=== PATIENT | female | born 1960 | race Hispanic/Latino ===

== ENCOUNTER 2019-12-16 23:57 | Inpatient (IN) | payer BC, OTHER, SELFPAY ==
[~2019-12-16] VITALS: Ht 157.5 cm; Wt 94.8 kg
[2019-12-17 01:22] LABS: BASOPHILS % (AUTO) 0.1 % (0.0-5.0); HEMATOCRIT 40.1 % (36-48); MEAN CORPUSCULAR HEMOGLOBIN 30.3 pg (27.0-33.0); MEAN CORPUSCULAR HGB CONC 34.4 g/dL (32.0-36.0); MEAN CORPUSCULAR VOLUME 88.1 fL (79-99); MONOCYTES % (AUTO) 2.6 % (3.0-13.0); NEUTROPHILS % (AUTO) 82.7 % (40.0-77.0); PLATELET COUNT (AUTO) 302 K/uL (130-400); RED BLOOD CELL COUNT(AUTO) 4.55 MIL/uL (4.00-5.50); WHITE BLOOD COUNT (AUTO) 7.8 K/uL (4.8-10.8)
[2019-12-17] MEDS ORDERED: CEFTRIAXONE SODIUM 2 GM VIAL ONE (01:35)
[2019-12-17] MEDS ORDERED: DEXAMETHASONE SOD PHOSPHATE 10MG/ML 1ML VIAL ONE (01:35)
[2019-12-17] MEDS ORDERED: ONDANSETRON HCL 4 MG/2 ML VIAL ONE (01:35)
[2019-12-17 01:38] LABS: CARBON DIOXIDE 26 mmol/L (21-32); CHLORIDE 93 mmol/L (101-111); CREATININE 0.9 mg/dL (0.5-1.5); GLOMERULAR FILTR. RATE CALC 68 mL/min (>60); GLUCOSE,RANDOM 117 mg/dL (70-105); POTASSIUM 3.8 mmol/L (3.5-5.1); SODIUM SERUM 130 mmol/L (136-145); UREA NITROGEN, BLOOD 12 mg/dL (7-18)
[2019-12-17 01:48] LABS: ABG BASE EXCESS -1.3 mmol/L (-2.0-3.0); ABG HCO3 20.6 mmol/L (21.0-28.0); ABG OXYGEN SATURATION 87.2 % (95.0-99.0); ABG PCO2 28 mmHg (32-45)
[2019-12-17 01:52] LABS: ALANINE AMINOTRANSFERASE 72 U/L (12-78); ALBUMIN 2.9 g/dL (3.5-5.0); ASPARTATE AMINOTRANSFERASE 98 U/L (10-37); BILIRUBIN,TOTAL 0.7 mg/dL (0.2-1.0); CREATINE KINASE, TOTAL 129 U/L (21-232); MYOGLOBIN 76 ng/mL (10-92); TOTAL PROTEIN, SERUM 8.1 g/dL (6.0-8.3); TROPONIN I < 0.04 ng/mL (0.00-0.06)
[2019-12-17 02:04] LABS: INR 0.96 (0.85-1.15); PARTIAL THROMBOPLASTIN TIME 31.7 SEC (26.3-35.5); PROTHROMBIN TIME 10.4 SEC (9.6-11.6)
[2019-12-17 02:50] LABS: APPEARANCE,URINE Clear (CLEAR); BILIRUBIN,URINE Small (NEGATIVE); COLOR,URINE Dark Yellow (YELLOW); GLUCOSE, URINE (UA) Negative (NEGATIVE); KETONES,URINE 15 mg/dL (NEGATIVE); LEUKOCYTE ESTERASE ,URINE Trace (NEGATIVE); NITRATE,URINE Negative (NEGATIVE); OCCULT BLOOD,URINE Large (NEGATIVE); PROTEIN,URINE 300 mg/dL (NEGATIVE)
[2019-12-17 03:13] LABS: BACTERIA,URINE Few /HPF (None Seen)
[2019-12-17 03:14] LABS: FINE GRANULAR CASTS,URINE 0-2 /LPF (None Seen)
[2019-12-17] MEDS ORDERED: ENOXAPARIN SODIUM 100 MG/1 ML SQ ONE ×2 (03:21→23:18)
[2019-12-17] MEDS ORDERED: ACETAMINOPHEN EXTRA STRENGTH 500 MG TABLET ONE (03:33)
[2019-12-17] MEDS ORDERED: ONDANSETRON HCL 4 MG/2 ML VIAL IV PRN (04:00)
[2019-12-17] MEDS ORDERED: HYDRALAZINE HCL 20 MG/ML VIAL IV PRN (04:00)
[2019-12-17] MEDS ORDERED: ACETAMINOPHEN 325 MG TAB PO PRN (04:00)
[2019-12-17] MEDS ORDERED: LACTULOSE 20 GM/30 ML UDCUP PO PRN (04:00)
[2019-12-17] MEDS ORDERED: IOHEXOL 350 MG/ML 100ML INFUS..BTL IV ONE (04:05)
[2019-12-17] MEDS: AZITHROMYCIN 500MG+NS 250ML 250 ML IV SCH (05:30)
[2019-12-17] MEDS: ALBUTEROL SULFATE/IPRATROPIUM 103/18 MCG/PUFF 14.7 GM INHR IH SCH ×3 (06:00→18:00)
[2019-12-17] MEDS: METHYLPREDNISOLONE SOD SUCC 40MG/ML 1ML IVP SCH ×3 (06:00→22:00)
[2019-12-17] MEDS ORDERED: AZITHROMYCIN 500MG+NS 250ML 250 ML IV ONE (06:49)
[2019-12-17] MEDS ORDERED: METHYLPREDNISOLONE SOD SUCC 40MG/ML 1ML ONE ×3 (06:49→23:19)
[2019-12-17] MEDS: INSULIN HUMULIN R 100 UNIT/ML 3ML SQ SCH ×4 (07:30→21:00)
[2019-12-17] MEDS ORDERED: ENOXAPARIN SODIUM 40 MG/0.4 ML SYRINGE SQ SCH (09:00)
[2019-12-17] MEDS: FAMOTIDINE 20MG TAB 20 MG TAB PO SCH ×2 (09:00→21:00)
[2019-12-17] MEDS ORDERED: ENOXAPARIN SODIUM 1 MG/KG SQ SCH (09:00)
[2019-12-17] MEDS ORDERED: MONT10TA26 PO (10:24)
[2019-12-17] MEDS ORDERED: ALBUHFA IH (10:24)
[2019-12-17] MEDS ORDERED: PRED5TAB PO (10:24)
[2019-12-17] MEDS ORDERED: LOSA25TA41 PO (10:24)
[2019-12-17] MEDS: ENOXAPARIN SODIUM 100 MG/1 ML SQ SCH ×2 (12:00→21:00)
[2019-12-17] MEDS ORDERED: FAMOTIDINE 20MG TAB 20 MG TAB ONE ×2 (13:46→23:19)
[2019-12-17] MEDS ORDERED: ALBUTEROL INHALER 90MCG/INH IH ONE (14:26)
--- NOTE | 2019-12-17 15:51 | NUR ---
DCP: HOME Sw unable to see pt who is ER covid unit. Sw spoke to pt's Johnathon Ryder [phone]. states that pt, he and their 35yro daughter and 8yro grandson have all tested positive and have all have symptoms, but pt who has asthma has had it the worst. Prior to covid, pt was independent, not DME or HH services. PCP is Paula Feliciano and she uses [facility] for meds. Plan is home at or
[2019-12-18] MEDS: CEFTRIAXONE SODIUM 1 GM IV SCH (01:59)
[2019-12-18 02:01] VITALS: BP 110/76
[2019-12-18 04:00] VITALS: BP 112/70
[2019-12-18] MEDS: ALBUTEROL SULFATE/IPRATROPIUM 103/18 MCG/PUFF 14.7 GM INHR IH SCH ×4 (04:21→18:36)
[2019-12-18] MEDS: METHYLPREDNISOLONE SOD SUCC 40MG/ML 1ML IVP SCH ×3 (06:08→22:29)
[2019-12-18] MEDS: AZITHROMYCIN 500MG+NS 250ML 250 ML IV SCH (06:08)
[2019-12-18] MEDS: INSULIN HUMULIN R 100 UNIT/ML 3ML SQ SCH ×4 (06:11→21:57)
[2019-12-18 06:44] LABS: BASOPHILS % (AUTO) 0.1 % (0.0-5.0); HEMATOCRIT 38.2 % (36-48); LYMPHOCYTES % (AUTO) 8.7 % (21.0-51.0); MEAN CORPUSCULAR HEMOGLOBIN 30.5 pg (27.0-33.0); MEAN CORPUSCULAR HGB CONC 34.3 g/dL (32.0-36.0); MEAN CORPUSCULAR VOLUME 88.8 fL (79-99); MONOCYTES % (AUTO) 2.4 % (3.0-13.0); PLATELET COUNT (AUTO) 355 K/uL (130-400); RED CELL DISTRIBUTION WIDTH 11.9 % (11.0-15.5); WHITE BLOOD COUNT (AUTO) 11.6 K/uL (4.8-10.8)
[2019-12-18 07:17] LABS: CRP QUANTITATIVE 121.8 mg/L (0.00-9.0); POTASSIUM 3.5 mmol/L (3.5-5.1)
[2019-12-18 08:00] VITALS: BP 104/65
[2019-12-18] MEDS ORDERED: REMDESIVIR (INVESTIGATIONAL) 100 MG in SODIUM CHLORIDE 0.9% 250 ML IV SCH (08:00)
[2019-12-18] MEDS: FAMOTIDINE 20MG TAB 20 MG TAB PO SCH ×2 (08:19→20:42)
[2019-12-18] MEDS: ENOXAPARIN SODIUM 100 MG/1 ML SQ SCH ×2 (08:20→21:52)
[2019-12-18 12:00] VITALS: BP 115/67
[2019-12-18 16:00] VITALS: BP 106/59
[2019-12-18] MEDS ORDERED: REMDESIVIR (INVESTIGATIONAL) 200 MG/250 ML NS IV SCH (18:45)
[2019-12-18 20:00] VITALS: BP 110/71
--- NOTE | 2019-12-18 20:00 | NUR ---
ASSESSMENT PT RESTING QUIETLY IN BED, AAOX4, PLEASANT COOPERATIVE, APPROPRIATE. REPOSITIONS SELF WITHOUT DIFFICULTY. HI FLOW O2 INTACT. , DENIES ANY DIFFICULTY, S.O.B., CHEST PAIN OR DISCOMFORT. VOIDS PER BEDPAN. ASSESSMENT COMPLETED, SEE FLOW SHEET.
[2019-12-18] MEDS: FAMOTIDINE/PF 20 MG/2 ML VIAL IV SCH (21:00)
[2019-12-18] MEDS ORDERED: FAMOTIDINE/PF 20 MG/2 ML VIAL IV ONE (21:17)
[2019-12-18] MEDS ORDERED: ALBUTEROL INHALER 90MCG/INH IH PRN (21:45)
[2019-12-19] VITALS: BP 117/73
[2019-12-19] MEDS: CEFTRIAXONE SODIUM 1 GM IV SCH (01:53)
[2019-12-19] MEDS ORDERED: SODIUM CHLORIDE 0.9% 250 ML IV ONE (03:32)
[2019-12-19 04:02] VITALS: BP 111/76
[2019-12-19 05:21] LABS: BASOPHILS % (AUTO) 0.1 % (0.0-5.0); HEMATOCRIT 35.8 % (36-48); LYMPHOCYTES % (AUTO) 6.2 % (21.0-51.0); MEAN CORPUSCULAR HEMOGLOBIN 29.7 pg (27.0-33.0); MEAN CORPUSCULAR HGB CONC 33.2 g/dL (32.0-36.0); MEAN CORPUSCULAR VOLUME 89.3 fL (79-99); NEUTROPHILS % (AUTO) 90.2 % (40.0-77.0); PLATELET COUNT (AUTO) 413 K/uL (130-400); RED BLOOD CELL COUNT(AUTO) 4.01 MIL/uL (4.00-5.50); RED CELL DISTRIBUTION WIDTH 11.9 % (11.0-15.5); WHITE BLOOD COUNT (AUTO) 14.3 K/uL (4.8-10.8)
[2019-12-19 05:44] LABS: CREATININE 0.9 mg/dL (0.5-1.5); CRP QUANTITATIVE 53.4 mg/L (0.00-9.0); POTASSIUM 3.7 mmol/L (3.5-5.1)
[2019-12-19] MEDS: INSULIN HUMULIN R 100 UNIT/ML 3ML SQ SCH ×4 (06:03→21:00)
[2019-12-19] MEDS: AZITHROMYCIN 500MG+NS 250ML 250 ML IV SCH (06:04)
[2019-12-19] MEDS: METHYLPREDNISOLONE SOD SUCC 40MG/ML 1ML IVP SCH ×3 (06:04→21:32)
[2019-12-19] MEDS: ALBUTEROL SULFATE/IPRATROPIUM 103/18 MCG/PUFF 14.7 GM INHR IH SCH ×4 (06:07→18:00)
--- NOTE | 2019-12-19 06:42 | NUR ---
PLASMA CONVALESCENT PLASMA GIVEN X2 UNITS, SEE FLOW SHEETS
[2019-12-19] MEDS ORDERED: DOCUSATE SODIUM 100 MG CAP PO ONE (08:00)
[2019-12-19] MEDS: FAMOTIDINE/PF 20 MG/2 ML VIAL IV SCH ×2 (08:24→20:15)
[2019-12-19] MEDS: ENOXAPARIN SODIUM 100 MG/1 ML SQ SCH ×2 (08:25→20:15)
[2019-12-19 08:32] VITALS: BP 121/74
[2019-12-19 11:30] VITALS: BP 125/81
[2019-12-19 15:00] VITALS: BP 136/80
[2019-12-19] MEDS: REMDESIVIR (INVESTIGATIONAL) 100 MG in SODIUM CHLORIDE 0.9% 250 ML IV SCH (16:49)
[2019-12-19 20:00] VITALS: BP 118/73
[2019-12-20] VITALS (7 sets, daily range): BP systolic 119–149; BP diastolic 73–87
[2019-12-20] MEDS: CEFTRIAXONE SODIUM 1 GM IV SCH (00:16)
[2019-12-20] MEDS: ALBUTEROL SULFATE/IPRATROPIUM 103/18 MCG/PUFF 14.7 GM INHR IH SCH ×5 (00:17→23:57)
[2019-12-20] MEDS: AZITHROMYCIN 500MG+NS 250ML 250 ML IV SCH (05:28)
[2019-12-20] MEDS: METHYLPREDNISOLONE SOD SUCC 40MG/ML 1ML IVP SCH ×3 (05:28→21:16)
[2019-12-20 05:47] LABS: BASOPHILS % (AUTO) 0.2 % (0.0-5.0); HEMATOCRIT 36.3 % (36-48); LYMPHOCYTES % (AUTO) 6.9 % (21.0-51.0); MEAN CORPUSCULAR HEMOGLOBIN 30.3 pg (27.0-33.0); MEAN CORPUSCULAR HGB CONC 33.3 g/dL (32.0-36.0); MONOCYTES % (AUTO) 1.6 % (3.0-13.0); PLATELET COUNT (AUTO) 449 K/uL (130-400); RED BLOOD CELL COUNT(AUTO) 3.99 MIL/uL (4.00-5.50); RED CELL DISTRIBUTION WIDTH 11.9 % (11.0-15.5); WHITE BLOOD COUNT (AUTO) 13.1 K/uL (4.8-10.8)
[2019-12-20] MEDS: INSULIN HUMULIN R 100 UNIT/ML 3ML SQ SCH ×4 (05:51→21:00)
[2019-12-20 06:52] LABS: CREATININE 0.8 mg/dL (0.5-1.5); CRP QUANTITATIVE 33.1 mg/L (0.00-9.0); POTASSIUM 3.8 mmol/L (3.5-5.1)
[2019-12-20] MEDS: ENOXAPARIN SODIUM 100 MG/1 ML SQ SCH ×2 (07:58→21:16)
[2019-12-20] MEDS: FAMOTIDINE/PF 20 MG/2 ML VIAL IV SCH ×2 (07:58→21:16)
[2019-12-20] MEDS: REMDESIVIR (INVESTIGATIONAL) 100 MG in SODIUM CHLORIDE 0.9% 250 ML IV SCH (16:44)
[2019-12-21] MEDS: CEFTRIAXONE SODIUM 1 GM IV SCH (00:29)
[2019-12-21 04:00] VITALS: BP 150/82
[2019-12-21] MEDS: METHYLPREDNISOLONE SOD SUCC 40MG/ML 1ML IVP SCH ×3 (05:09→20:27)
[2019-12-21] MEDS: ALBUTEROL SULFATE/IPRATROPIUM 103/18 MCG/PUFF 14.7 GM INHR IH SCH ×3 (05:09→18:00)
[2019-12-21] MEDS: AZITHROMYCIN 500MG+NS 250ML 250 ML IV SCH (05:09)
[2019-12-21] MEDS: INSULIN HUMULIN R 100 UNIT/ML 3ML SQ SCH ×4 (05:24→20:43)
[2019-12-21 07:29] LABS: CRP QUANTITATIVE 35.2 mg/L (0.00-9.0)
[2019-12-21 08:00] VITALS: BP 136/82
[2019-12-21] MEDS: ENOXAPARIN SODIUM 100 MG/1 ML SQ SCH (09:43)
[2019-12-21] MEDS: FAMOTIDINE/PF 20 MG/2 ML VIAL IV SCH ×2 (09:43→20:27)
[2019-12-21 11:38] VITALS: BP 132/82
[2019-12-21] MEDS: REMDESIVIR (INVESTIGATIONAL) 100 MG in SODIUM CHLORIDE 0.9% 250 ML IV SCH (16:00)
[2019-12-21] MEDS ORDERED: SODIUM CHLORIDE 0.9% 250 ML IV ONE (16:07)
[2019-12-21 16:24] VITALS: BP 147/84
[2019-12-21 20:00] VITALS: BP 152/77
[2019-12-21] MEDS: ENOXAPARIN SODIUM 40 MG/0.4 ML SYRINGE SQ SCH (20:28)
[2019-12-22] VITALS (7 sets, daily range): BP systolic 125–156; BP diastolic 69–92
[2019-12-22] MEDS: CEFTRIAXONE SODIUM 1 GM IV SCH ×2 (00:18→21:06)
[2019-12-22] MEDS: ALBUTEROL SULFATE/IPRATROPIUM 103/18 MCG/PUFF 14.7 GM INHR IH SCH ×4 (00:19→17:00)
[2019-12-22] MEDS: METHYLPREDNISOLONE SOD SUCC 40MG/ML 1ML IVP SCH ×3 (05:43→21:06)
[2019-12-22] MEDS: AZITHROMYCIN 500MG+NS 250ML 250 ML IV SCH (05:43)
[2019-12-22 05:58] LABS: BASOPHILS % (AUTO) 0.1 % (0.0-5.0); EOSINOPHILS % (AUTO) 0.2 % (0.0-8.0); HEMATOCRIT 38.2 % (36-48); LYMPHOCYTES % (AUTO) 7.5 % (21.0-51.0); MEAN CORPUSCULAR HEMOGLOBIN 29.7 pg (27.0-33.0); MEAN CORPUSCULAR HGB CONC 33.2 g/dL (32.0-36.0); MEAN CORPUSCULAR VOLUME 89.3 fL (79-99); MONOCYTES % (AUTO) 0.7 % (3.0-13.0); NEUTROPHILS % (AUTO) 88.8 % (40.0-77.0); PLATELET COUNT (AUTO) 504 K/uL (130-400); RED BLOOD CELL COUNT(AUTO) 4.28 MIL/uL (4.00-5.50); RED CELL DISTRIBUTION WIDTH 11.8 % (11.0-15.5); WHITE BLOOD COUNT (AUTO) 13.5 K/uL (4.8-10.8)
[2019-12-22] MEDS: INSULIN HUMULIN R 100 UNIT/ML 3ML SQ SCH ×3 (06:15→16:45)
[2019-12-22 07:18] LABS: ALBUMIN 2.6 g/dL (3.5-5.0); BILIRUBIN,TOTAL 0.5 mg/dL (0.2-1.0); CREATININE 0.9 mg/dL (0.5-1.5); CRP QUANTITATIVE 37.6 mg/L (0.00-9.0); TOTAL PROTEIN, SERUM 6.8 g/dL (6.0-8.3)
[2019-12-22 07:26] LABS: POTASSIUM 3.9 mmol/L (3.5-5.1)
[2019-12-22] MEDS: FAMOTIDINE/PF 20 MG/2 ML VIAL IV SCH ×2 (08:10→21:06)
[2019-12-22] MEDS: ENOXAPARIN SODIUM 40 MG/0.4 ML SYRINGE SQ SCH ×2 (08:11→21:07)
[2019-12-22] MEDS: REMDESIVIR (INVESTIGATIONAL) 100 MG in SODIUM CHLORIDE 0.9% 250 ML IV SCH (16:29)
[2019-12-22] MEDS ORDERED: PHARMACY COMMUNICATION MISC SCH (20:30)
[2019-12-23 03:30] VITALS: BP 141/81
[2019-12-23 05:11] LABS: BASOPHILS % (AUTO) 0.2 % (0.0-5.0); EOSINOPHILS % (AUTO) 0.2 % (0.0-8.0); HEMATOCRIT 39.2 % (36-48); LYMPHOCYTES % (AUTO) 4.6 % (21.0-51.0); MEAN CORPUSCULAR HEMOGLOBIN 30.1 pg (27.0-33.0); MEAN CORPUSCULAR HGB CONC 33.2 g/dL (32.0-36.0); MEAN CORPUSCULAR VOLUME 90.7 fL (79-99); MONOCYTES % (AUTO) 0.7 % (3.0-13.0); NEUTROPHILS % (AUTO) 91.9 % (40.0-77.0); PLATELET COUNT (AUTO) 555 K/uL (130-400); RED BLOOD CELL COUNT(AUTO) 4.32 MIL/uL (4.00-5.50); RED CELL DISTRIBUTION WIDTH 11.8 % (11.0-15.5); WHITE BLOOD COUNT (AUTO) 13.8 K/uL (4.8-10.8)
[2019-12-23 05:16] LABS: ALBUMIN 2.6 g/dL (3.5-5.0); BILIRUBIN,TOTAL 0.5 mg/dL (0.2-1.0); CREATININE 0.7 mg/dL (0.5-1.5); CRP QUANTITATIVE 36.4 mg/L (0.00-9.0); POTASSIUM 4.6 mmol/L (3.5-5.1)
[2019-12-23] MEDS: INSULIN HUMULIN R 100 UNIT/ML 3ML SQ SCH ×5 (05:24→21:21)
[2019-12-23] MEDS: ALBUTEROL SULFATE/IPRATROPIUM 103/18 MCG/PUFF 14.7 GM INHR IH SCH ×4 (06:00→17:15)
[2019-12-23] MEDS: AZITHROMYCIN 500MG+NS 250ML 250 ML IV SCH (06:07)
[2019-12-23] MEDS: METHYLPREDNISOLONE SOD SUCC 40MG/ML 1ML IVP SCH ×3 (06:07→21:20)
--- NOTE | 2019-12-23 07:40 | NUR ---
DR TREJO MADE AWARE ABOUT PATIENT SATTING 70-80 % ON 100% NRM PLUS 4 LITERS VIA NASAL CANNULA, NEW ORDERS GIVEN. Addendum: 12/23/19 at 1541 by BREE DE RN RN CORRECTION, CHARTED ON WRONG PATIENT
[2019-12-23 08:00] VITALS: BP 125/82
--- NOTE | 2019-12-23 08:15 | NUR ---
DR TREJO NOTIFIED VIA PHONE REGARDING ABG RESULTS: PH 7.449, PCO2 38.2, PO2 38.1, BE 2.0, NEW INSTRUCTIONS GIVEN TO PLACE PATIENT ON PRONE POSITION, ORDERS CARRIED OUT, ORDERED PER Addendum: 12/23/19 at 1541 by BREE DE RN RN CORRECTION, CHARTED ON WRONG PATIENT
[2019-12-23] MEDS: FAMOTIDINE/PF 20 MG/2 ML VIAL IV SCH ×2 (08:45→21:18)
[2019-12-23] MEDS: ENOXAPARIN SODIUM 40 MG/0.4 ML SYRINGE SQ SCH ×2 (08:45→21:19)
--- NOTE | 2019-12-23 09:05 | NUR ---
REMAINS WITH O2 SATS BETWEEN 75-82%, PLACED ON HIGH FLOW 50 LITERS, 100 %FIO2 PLUS 100 % NRM, INSTRUCTED PER DR TREJO Addendum: 12/23/19 at 1543 by BREE DE RN RN CORRECTION, CHARTED ON WRONG PATIENT
--- NOTE | 2019-12-23 10:20 | NUR ---
DR TREJO PRESENT OUTSIDE PATIENT'S ROOM, NEW ORDERS GIVEN
[2019-12-23 12:00] VITALS: BP 124/77
[2019-12-23 15:00] VITALS: BP 112/77
[2019-12-23 19:32] VITALS: BP 131/92
[2019-12-23] MEDS: CEFTRIAXONE SODIUM 1 GM IV SCH (21:19)
[2019-12-24 00:08] VITALS: BP 144/92
[2019-12-24] MEDS: ACETAMINOPHEN 325 MG TAB PO PRN (01:04)
[2019-12-24 04:00] VITALS: BP 146/78
[2019-12-24] MEDS: METHYLPREDNISOLONE SOD SUCC 40MG/ML 1ML IVP SCH ×3 (05:04→21:37)
[2019-12-24] MEDS: AZITHROMYCIN 500MG+NS 250ML 250 ML IV SCH (05:04)
[2019-12-24] MEDS: ALBUTEROL SULFATE/IPRATROPIUM 103/18 MCG/PUFF 14.7 GM INHR IH SCH ×4 (06:00→17:06)
[2019-12-24] MEDS: INSULIN HUMULIN R 100 UNIT/ML 3ML SQ SCH ×4 (06:43→21:00)
[2019-12-24 06:58] LABS: BASOPHILS % (AUTO) 0.1 % (0.0-5.0); EOSINOPHILS % (AUTO) 0.3 % (0.0-8.0); HEMATOCRIT 38.8 % (36-48); LYMPHOCYTES % (AUTO) 4.3 % (21.0-51.0); MEAN CORPUSCULAR HEMOGLOBIN 29.8 pg (27.0-33.0); MEAN CORPUSCULAR VOLUME 90.2 fL (79-99); MONOCYTES % (AUTO) 0.6 % (3.0-13.0); PLATELET COUNT (AUTO) 577 K/uL (130-400); RED CELL DISTRIBUTION WIDTH 11.9 % (11.0-15.5); WHITE BLOOD COUNT (AUTO) 11.9 K/uL (4.8-10.8)
[2019-12-24 07:33] LABS: ALBUMIN 2.5 g/dL (3.5-5.0); BILIRUBIN,TOTAL 0.5 mg/dL (0.2-1.0); CREATININE 0.7 mg/dL (0.5-1.5); CRP QUANTITATIVE 26.1 mg/L (0.00-9.0); POTASSIUM 4.3 mmol/L (3.5-5.1); TOTAL PROTEIN, SERUM 6.7 g/dL (6.0-8.3)
[2019-12-24 08:00] VITALS: BP 116/93
[2019-12-24] MEDS: FAMOTIDINE/PF 20 MG/2 ML VIAL IV SCH ×2 (08:05→21:37)
[2019-12-24] MEDS: ENOXAPARIN SODIUM 40 MG/0.4 ML SYRINGE SQ SCH ×2 (08:05→21:36)
[2019-12-24 12:00] VITALS: BP 136/91
[2019-12-24] MEDS: ACETYLCYSTEINE 600 MG CAPSULE PO SCH ×2 (12:17→21:37)
[2019-12-24 16:00] VITALS: BP 117/83
[2019-12-24 19:57] VITALS: BP 109/80
[2019-12-24] MEDS ORDERED: SODIUM CHLORIDE 0.9% 250 ML IV ONE (20:16)
[2019-12-25] VITALS (7 sets, daily range): BP systolic 104–150; BP diastolic 66–93
[2019-12-25] MEDS: METHYLPREDNISOLONE SOD SUCC 40MG/ML 1ML IVP SCH ×3 (06:00→21:39)
[2019-12-25] MEDS: ALBUTEROL SULFATE/IPRATROPIUM 103/18 MCG/PUFF 14.7 GM INHR IH SCH ×4 (06:00→16:25)
[2019-12-25 06:12] LABS: ALBUMIN 2.5 g/dL (3.5-5.0); BILIRUBIN,TOTAL 0.6 mg/dL (0.2-1.0); CREATININE 0.8 mg/dL (0.5-1.5); CRP QUANTITATIVE 12.9 mg/L (0.00-9.0); POTASSIUM 4.4 mmol/L (3.5-5.1); TOTAL PROTEIN, SERUM 6.8 g/dL (6.0-8.3)
[2019-12-25 06:21] LABS: HEMATOCRIT 39.4 % (36-48); MEAN CORPUSCULAR HEMOGLOBIN 30.7 pg (27.0-33.0); MEAN CORPUSCULAR HGB CONC 34.3 g/dL (32.0-36.0); MEAN CORPUSCULAR VOLUME 89.5 fL (79-99); PLATELET COUNT (AUTO) 614 K/uL (130-400); RED CELL DISTRIBUTION WIDTH 11.9 % (11.0-15.5)
[2019-12-25] MEDS: INSULIN HUMULIN R 100 UNIT/ML 3ML SQ SCH ×4 (07:30→21:51)
[2019-12-25] MEDS: FAMOTIDINE/PF 20 MG/2 ML VIAL IV SCH ×2 (07:59→21:39)
[2019-12-25] MEDS: ENOXAPARIN SODIUM 40 MG/0.4 ML SYRINGE SQ SCH ×2 (07:59→21:40)
[2019-12-25] MEDS: ACETYLCYSTEINE 600 MG CAPSULE PO SCH ×2 (08:00→21:39)
[2019-12-25 08:47] LABS: LYMPHOCYTES % (MANUAL) 11 % (22-44); MONOCYTES % (MANUAL) 10 % (2-9); SEGMENTED NEUTROPHILS % 79 % (40-70)
[2019-12-25 08:48] LABS: MAN.DIFF COMMENT-IMPRESSION MANUAL DIFFERENTIAL; PLATELET MORPHOLOGY COMMENT INCREASED
--- NOTE | 2019-12-25 09:35 | NUR ---
REPORT GIVEN TO IRVING TOLBERT, TRANSFERRED TO ROOM 412 VIA WHEELCHAIR, ACCOMPANIED PER CHARGE NURSE KRISTOPHER HAQUE RN
--- NOTE | 2019-12-25 11:00 | NUR ---
Pt came to floor from ICU A&Ox4, pt was on high flow oxygen 30L 55% sat at 92-94%, pt BSC was placed near her, pt showed no signs and symptoms of distress, pt stated no pain, will continue to monitor
[2019-12-25] MEDS: ACETAMINOPHEN 325 MG TAB PO PRN (22:52)
--- NOTE | 2019-12-25 23:58 | NUR ---
Assessment Pt is in the room resting peacefully. As of right now she stated that she does not need anything. Her headache she complained of earlier in the shift is gone after tylenol was being administered. Pt is being monitored closely
[2019-12-26] MEDS: ACETAMINOPHEN 325 MG TAB PO PRN ×3 (03:17→03:40)
[2019-12-26 03:25] VITALS: BP 131/100
[2019-12-26] MEDS: INSULIN HUMULIN R 100 UNIT/ML 3ML SQ SCH ×4 (05:58→20:47)
[2019-12-26] MEDS: METHYLPREDNISOLONE SOD SUCC 40MG/ML 1ML IVP SCH ×3 (05:59→20:44)
[2019-12-26 06:12] LABS: HEMATOCRIT 41.4 % (36-48); MEAN CORPUSCULAR HEMOGLOBIN 30.7 pg (27.0-33.0); MEAN CORPUSCULAR HGB CONC 34.3 g/dL (32.0-36.0); MEAN CORPUSCULAR VOLUME 89.4 fL (79-99); PLATELET COUNT (AUTO) 581 K/uL (130-400); RED BLOOD CELL COUNT(AUTO) 4.63 MIL/uL (4.00-5.50); WHITE BLOOD COUNT (AUTO) 12.6 K/uL (4.8-10.8)
[2019-12-26] MEDS: ALBUTEROL SULFATE/IPRATROPIUM 103/18 MCG/PUFF 14.7 GM INHR IH SCH ×2 (06:13)
[2019-12-26 06:28] LABS: ALBUMIN 2.8 g/dL (3.5-5.0); BILIRUBIN,TOTAL 0.6 mg/dL (0.2-1.0); CREATININE 0.8 mg/dL (0.5-1.5); CRP QUANTITATIVE 6.2 mg/L (0.00-9.0); POTASSIUM 4.5 mmol/L (3.5-5.1)
[2019-12-26 07:37] VITALS: BP 131/97
[2019-12-26 08:37] LABS: LYMPHOCYTES % (MANUAL) 10 % (22-44); MAN.DIFF COMMENT-IMPRESSION MANUAL DIFFERENTIAL; MONOCYTES % (MANUAL) 2 % (2-9); PLATELET MORPHOLOGY COMMENT INCREASED; SEGMENTED NEUTROPHILS % 88 % (40-70)
[2019-12-26] MEDS: FAMOTIDINE/PF 20 MG/2 ML VIAL IV SCH ×2 (09:21→20:44)
[2019-12-26] MEDS: ACETYLCYSTEINE 600 MG CAPSULE PO SCH ×2 (09:21→20:44)
[2019-12-26] MEDS: ENOXAPARIN SODIUM 40 MG/0.4 ML SYRINGE SQ SCH ×2 (09:24→20:45)
--- NOTE | 2019-12-26 10:39 | NUR ---
RDSCREEN - LOS X 9 Pt with Positive COVID-19, Acute respiratory distress. Pt Hx of DM. Pt with decreased appetite at this time. Elevated LDH, Ferritin, BG. Morbid Obesity. s/p Plasma Tx, tolerating prone positioning as per EMR. Recommend 75gm CC diet modification Recommend Glucerna TID Recommend 500mg Vitamin C (BID), 220mg ZnSO4 (QD). RD to continue to monitor. Please notify RD as additional nutrition concerns arise. Thank you.
[2019-12-26 10:44] VITALS: BP 135/91
[2019-12-26 15:54] VITALS: BP 112/88
--- NOTE | 2019-12-26 18:25 | NUR ---
Pt is alert, showed no symptoms of distress, vitals WNL, pt is aware he is waiting on a place to accept him,
--- NOTE | 2019-12-26 18:47 | NUR ---
pt is alert, showed no signs and symptoms of distress, pt is on high flow oxygen sat at 97 tolerating well, will continue to monitor
[2019-12-26 19:00] VITALS: BP 117/81
[2019-12-26 23:42] VITALS: BP 125/89
[2019-12-27] MEDS: ALBUTEROL SULFATE/IPRATROPIUM 103/18 MCG/PUFF 14.7 GM INHR IH SCH ×4 (01:50→16:42)
--- NOTE | 2019-12-27 02:06 | NUR ---
Assessment Pt is in the bed sleeping. Oxygen is stable as well as other vitals. Pt is NOT showing S/S of distress. She is being closely monitored.
[2019-12-27 04:24] VITALS: BP 113/82
[2019-12-27] MEDS: METHYLPREDNISOLONE SOD SUCC 40MG/ML 1ML IVP SCH ×3 (06:22→21:02)
[2019-12-27] MEDS: INSULIN HUMULIN R 100 UNIT/ML 3ML SQ SCH ×4 (06:23→21:04)
[2019-12-27 07:39] LABS: BASOPHILS % (AUTO) 0.2 % (0.0-5.0); EOSINOPHILS % (AUTO) 0.2 % (0.0-8.0); HEMATOCRIT 39.4 % (36-48); LYMPHOCYTES % (AUTO) 8.3 % (21.0-51.0); MEAN CORPUSCULAR HEMOGLOBIN 29.6 pg (27.0-33.0); MEAN CORPUSCULAR HGB CONC 33.2 g/dL (32.0-36.0); MEAN CORPUSCULAR VOLUME 89.1 fL (79-99); MONOCYTES % (AUTO) 2.6 % (3.0-13.0); NEUTROPHILS % (AUTO) 87.6 % (40.0-77.0); PLATELET COUNT (AUTO) 506 K/uL (130-400); RED BLOOD CELL COUNT(AUTO) 4.42 MIL/uL (4.00-5.50); RED CELL DISTRIBUTION WIDTH 11.9 % (11.0-15.5); WHITE BLOOD COUNT (AUTO) 10.7 K/uL (4.8-10.8)
[2019-12-27 08:00] VITALS: BP 127/85
--- NOTE | 2019-12-27 08:00 | NUR ---
ENCOUNTERED PATIENT SITTING ON THE EDGE OF BED ON HIGH FLOW NC SET AT 20L, 55% FIO2. PATIENT VOICED THAT SHE FEELS MUCH BETTER TODAY HOWEVER STILL DEPENDS ON THE O2. FULL ASSESSMENT DONE. BEDSIDE COMMODE IN ROOM. CALL LIGHT WITHIN REACH. MAINTAINED ENHANCED ISOLATION.
[2019-12-27 08:12] LABS: ALBUMIN 2.6 g/dL (3.5-5.0); BILIRUBIN,TOTAL 0.8 mg/dL (0.2-1.0); CREATININE 0.7 mg/dL (0.5-1.5); CRP QUANTITATIVE 5.1 mg/L (0.00-9.0); POTASSIUM 4.1 mmol/L (3.5-5.1); TOTAL PROTEIN, SERUM 6.4 g/dL (6.0-8.3)
[2019-12-27] MEDS: ENOXAPARIN SODIUM 40 MG/0.4 ML SYRINGE SQ SCH ×2 (08:44→21:03)
[2019-12-27] MEDS: FAMOTIDINE/PF 20 MG/2 ML VIAL IV SCH ×2 (08:44→21:02)
[2019-12-27] MEDS: ACETYLCYSTEINE 600 MG CAPSULE PO SCH ×2 (08:44→21:03)
[2019-12-27 12:00] VITALS: BP 118/81
--- NOTE | 2019-12-27 14:40 | NUR ---
RT WEANED PATIENT OFF HIGH FLOW NASAL CANNULA AND KEPT HER ON 100% NONREBREATHER. O2 SAT: 95%.
[2019-12-27 16:00] VITALS: BP 121/77
--- NOTE | 2019-12-27 16:17 | NUR ---
O2 SAT: 95% ON 100% NRB.
[2019-12-27 20:28] VITALS: BP 110/81
[2019-12-28] VITALS (7 sets, daily range): BP systolic 112–131; BP diastolic 74–91
--- NOTE | 2019-12-28 02:58 | NUR ---
Assessment Pt is in the bed peacefully resting. She is not showing any S/S of distress. Vitals are stable & she is being closely monitored.
[2019-12-28] MEDS: ALBUTEROL SULFATE/IPRATROPIUM 103/18 MCG/PUFF 14.7 GM INHR IH SCH ×4 (05:49→19:34)
[2019-12-28] MEDS: INSULIN HUMULIN R 100 UNIT/ML 3ML SQ SCH ×4 (05:59→20:28)
[2019-12-28] MEDS: METHYLPREDNISOLONE SOD SUCC 40MG/ML 1ML IVP SCH ×3 (06:12→20:28)
[2019-12-28 06:56] LABS: MEAN CORPUSCULAR HEMOGLOBIN 30.6 pg (27.0-33.0); MEAN CORPUSCULAR HGB CONC 34.1 g/dL (32.0-36.0); MEAN CORPUSCULAR VOLUME 89.9 fL (79-99); PLATELET COUNT (AUTO) 421 K/uL (130-400); RED BLOOD CELL COUNT(AUTO) 4.34 MIL/uL (4.00-5.50); RED CELL DISTRIBUTION WIDTH 11.8 % (11.0-15.5); WHITE BLOOD COUNT (AUTO) 10.3 K/uL (4.8-10.8)
[2019-12-28 08:14] LABS: ALBUMIN 2.6 g/dL (3.5-5.0); BILIRUBIN,TOTAL 0.7 mg/dL (0.2-1.0); CREATININE 0.7 mg/dL (0.5-1.5); CRP QUANTITATIVE 6.9 mg/L (0.00-9.0); POTASSIUM 4.1 mmol/L (3.5-5.1); TOTAL PROTEIN, SERUM 6.3 g/dL (6.0-8.3)
[2019-12-28 08:35] LABS: LYMPHOCYTES % (MANUAL) 8 % (22-44); MONOCYTES % (MANUAL) 3 % (2-9); SEGMENTED NEUTROPHILS % 89 % (40-70)
[2019-12-28 08:38] LABS: MAN.DIFF COMMENT-IMPRESSION MANUAL DIFFERENTIAL; PLATELET MORPHOLOGY COMMENT ADEQUATE
[2019-12-28] MEDS: ACETYLCYSTEINE 600 MG CAPSULE PO SCH ×2 (08:52→20:25)
[2019-12-28] MEDS: FAMOTIDINE/PF 20 MG/2 ML VIAL IV SCH ×2 (08:52→20:25)
[2019-12-28] MEDS: ENOXAPARIN SODIUM 40 MG/0.4 ML SYRINGE SQ SCH ×2 (14:31→20:24)
[2019-12-28] MEDS ORDERED: METHYLPREDNISOLONE SOD SUCC 125MG/2ML VIAL IVP ONE (21:00)
[2019-12-29] MEDS: ALBUTEROL SULFATE/IPRATROPIUM 103/18 MCG/PUFF 14.7 GM INHR IH SCH ×4 (00:56→19:29)
[2019-12-29 04:00] VITALS: BP 116/80
--- NOTE | 2019-12-29 04:05 | NUR ---
Assessment Patient is sleeping not showing any S/S of distress. Her O2 sats. 94 % on a non rebreather & other vitals are stable as well. She is being closely monitored........
[2019-12-29] MEDS: INSULIN HUMULIN R 100 UNIT/ML 3ML SQ SCH ×4 (05:44→21:04)
[2019-12-29] MEDS: METHYLPREDNISOLONE SOD SUCC 40MG/ML 1ML IVP SCH ×3 (05:45→21:00)
[2019-12-29 08:08] LABS: HEMATOCRIT 39.6 % (36-48); MEAN CORPUSCULAR HEMOGLOBIN 30.7 pg (27.0-33.0); MEAN CORPUSCULAR HGB CONC 34.1 g/dL (32.0-36.0); PLATELET COUNT (AUTO) 434 K/uL (130-400); RED CELL DISTRIBUTION WIDTH 11.9 % (11.0-15.5); WHITE BLOOD COUNT (AUTO) 10.3 K/uL (4.8-10.8)
[2019-12-29 08:44] LABS: LYMPHOCYTES % (MANUAL) 5 % (22-44); MAN.DIFF COMMENT-IMPRESSION MANUAL DIFFERENTIAL; SEGMENTED NEUTROPHILS % 95 % (40-70)
[2019-12-29] MEDS: ACETYLCYSTEINE 600 MG CAPSULE PO SCH ×2 (08:51→21:00)
[2019-12-29] MEDS: FAMOTIDINE/PF 20 MG/2 ML VIAL IV SCH ×2 (08:51→21:00)
[2019-12-29 09:37] LABS: ALBUMIN 2.7 g/dL (3.5-5.0); BILIRUBIN,TOTAL 0.6 mg/dL (0.2-1.0); CREATININE 0.7 mg/dL (0.5-1.5); CRP QUANTITATIVE 3.6 mg/L (0.00-9.0); POTASSIUM 4.1 mmol/L (3.5-5.1); TOTAL PROTEIN, SERUM 6.4 g/dL (6.0-8.3)
[2019-12-29 09:54] VITALS: BP 124/63
[2019-12-29] MEDS: ENOXAPARIN SODIUM 40 MG/0.4 ML SYRINGE SQ SCH ×2 (12:38→21:00)
[2019-12-29 13:42] VITALS: BP 108/60
--- NOTE | 2019-12-29 18:34 | NUR ---
Pt still on non-rebreather 15L, pt showed no signs and symptoms of distress, alert, will continue to monitor
[2019-12-29 19:35] VITALS: BP 108/77
[2019-12-29 20:00] VITALS: BP 117/67
[2019-12-30] VITALS (7 sets, daily range): BP systolic 110–133; BP diastolic 70–84
[2019-12-30] MEDS: ALBUTEROL SULFATE/IPRATROPIUM 103/18 MCG/PUFF 14.7 GM INHR IH SCH ×4 (01:37→17:13)
--- NOTE | 2019-12-30 04:27 | NUR ---
assessment patient alert and oriented times 4. No complaints of any pain. pt. is in no distress will continue to monitor.
[2019-12-30] MEDS: METHYLPREDNISOLONE SOD SUCC 40MG/ML 1ML IVP SCH ×3 (06:30→20:34)
[2019-12-30] MEDS: INSULIN HUMULIN R 100 UNIT/ML 3ML SQ SCH ×4 (06:32→20:36)
[2019-12-30 08:07] LABS: BASOPHILS % (AUTO) 0.3 % (0.0-5.0); EOSINOPHILS % (AUTO) 0.1 % (0.0-8.0); HEMATOCRIT 41.6 % (36-48); LYMPHOCYTES % (AUTO) 10.9 % (21.0-51.0); MEAN CORPUSCULAR HEMOGLOBIN 30.7 pg (27.0-33.0); MEAN CORPUSCULAR HGB CONC 32.2 g/dL (32.0-36.0); MEAN CORPUSCULAR VOLUME 95.4 fL (79-99); NEUTROPHILS % (AUTO) 84.8 % (40.0-77.0); PLATELET COUNT (AUTO) 132 K/uL (130-400); RED BLOOD CELL COUNT(AUTO) 4.36 MIL/uL (4.00-5.50); WHITE BLOOD COUNT (AUTO) 9.1 K/uL (4.8-10.8)
[2019-12-30 08:09] LABS: ALANINE AMINOTRANSFERASE 78 U/L (12-78); ALBUMIN 2.5 g/dL (3.5-5.0); ASPARTATE AMINOTRANSFERASE 24 U/L (10-37); BILIRUBIN,TOTAL 0.6 mg/dL (0.2-1.0); CARBON DIOXIDE 25 mmol/L (21-32); CHLORIDE 98 mmol/L (101-111); CREATININE 0.7 mg/dL (0.5-1.5); GLOMERULAR FILTR. RATE CALC 91 mL/min (>60); GLUCOSE,RANDOM 222 mg/dL (70-105); LACTATE DEHYDROGENASE 272 U/L (81-234); POTASSIUM 4.3 mmol/L (3.5-5.1); SODIUM SERUM 131 mmol/L (136-145); TOTAL PROTEIN, SERUM 6.2 g/dL (6.0-8.3); UREA NITROGEN, BLOOD 21 mg/dL (7-18)
[2019-12-30] MEDS: ENOXAPARIN SODIUM 40 MG/0.4 ML SYRINGE SQ SCH ×2 (09:32→20:34)
[2019-12-30] MEDS: FAMOTIDINE/PF 20 MG/2 ML VIAL IV SCH ×2 (09:32→20:34)
[2019-12-30] MEDS: ACETYLCYSTEINE 600 MG CAPSULE PO SCH ×2 (09:32→20:34)
[2019-12-31] MEDS: ALBUTEROL SULFATE/IPRATROPIUM 103/18 MCG/PUFF 14.7 GM INHR IH SCH ×5 (00:48→23:40)
[2019-12-31 03:30] VITALS: BP 113/74
[2019-12-31] MEDS: METHYLPREDNISOLONE SOD SUCC 40MG/ML 1ML IVP SCH ×3 (05:42→20:45)
[2019-12-31] MEDS: INSULIN HUMULIN R 100 UNIT/ML 3ML SQ SCH ×4 (05:44→20:49)
[2019-12-31 07:04] LABS: BASOPHILS % (AUTO) 0.1 % (0.0-5.0); EOSINOPHILS % (AUTO) 0.2 % (0.0-8.0); LYMPHOCYTES % (AUTO) 13.5 % (21.0-51.0); MEAN CORPUSCULAR HEMOGLOBIN 29.5 pg (27.0-33.0); MEAN CORPUSCULAR HGB CONC 33.2 g/dL (32.0-36.0); MONOCYTES % (AUTO) 4.5 % (3.0-13.0); NEUTROPHILS % (AUTO) 80.7 % (40.0-77.0); PLATELET COUNT (AUTO) 354 K/uL (130-400); RED BLOOD CELL COUNT(AUTO) 4.27 MIL/uL (4.00-5.50); WHITE BLOOD COUNT (AUTO) 10.6 K/uL (4.8-10.8)
[2019-12-31 07:16] LABS: ALANINE AMINOTRANSFERASE 73 U/L (12-78); ALBUMIN 2.7 g/dL (3.5-5.0); ASPARTATE AMINOTRANSFERASE 18 U/L (10-37); BILIRUBIN,TOTAL 0.7 mg/dL (0.2-1.0); CARBON DIOXIDE 32 mmol/L (21-32); CHLORIDE 101 mmol/L (101-111); CREATININE 0.7 mg/dL (0.5-1.5); GLOMERULAR FILTR. RATE CALC 91 mL/min (>60); GLUCOSE,RANDOM 173 mg/dL (70-105); LACTATE DEHYDROGENASE 215 U/L (81-234); POTASSIUM 4.1 mmol/L (3.5-5.1); SODIUM SERUM 136 mmol/L (136-145); UREA NITROGEN, BLOOD 20 mg/dL (7-18)
[2019-12-31 07:19] LABS: CRP QUANTITATIVE < 2.00 mg/L (0.00-9.0)
[2019-12-31 08:00] VITALS: BP 115/76
[2019-12-31] MEDS: ACETYLCYSTEINE 600 MG CAPSULE PO SCH ×2 (08:55→20:44)
[2019-12-31] MEDS: ENOXAPARIN SODIUM 40 MG/0.4 ML SYRINGE SQ SCH (08:56)
[2019-12-31] MEDS: FAMOTIDINE/PF 20 MG/2 ML VIAL IV SCH ×2 (09:10→20:44)
[2019-12-31 13:07] VITALS: BP 117/89
--- NOTE | 2019-12-31 18:07 | NUR ---
Pt is alert, showed no signs and symptoms of distress, pt was educated on laying on her stomach to improve her breathing and how if shifts fluid around to help her breathe better, pt stated ok she will try, pt is still on venti mask 15L oxygen sating at 94%, will continue to monitor pt
[2019-12-31 18:11] VITALS: BP 128/85
[2019-12-31 20:16] VITALS: BP 106/77
[2020-01-01 00:16] VITALS: BP 114/80
--- NOTE | 2020-01-01 02:12 | NUR ---
assessment Patient is alert and oriented times 4. No complaints of any pain. Patient woke up at 0100 and was a little confused. she had been sleeping prone. oxygen level was taken and patient was 96%. no other complaints will continue to monitor.
[2020-01-01 04:16] VITALS: BP 120/83
[2020-01-01] MEDS: METHYLPREDNISOLONE SOD SUCC 40MG/ML 1ML IVP SCH ×3 (05:31→20:44)
[2020-01-01] MEDS: ALBUTEROL SULFATE/IPRATROPIUM 103/18 MCG/PUFF 14.7 GM INHR IH SCH ×3 (05:31→17:06)
[2020-01-01] MEDS: INSULIN HUMULIN R 100 UNIT/ML 3ML SQ SCH ×4 (05:38→20:46)
[2020-01-01 05:54] LABS: BASOPHILS % (AUTO) 0.2 % (0.0-5.0); HEMATOCRIT 36.8 % (36-48); LYMPHOCYTES % (AUTO) 10.1 % (21.0-51.0); MEAN CORPUSCULAR HEMOGLOBIN 30.2 pg (27.0-33.0); MEAN CORPUSCULAR HGB CONC 33.7 g/dL (32.0-36.0); MEAN CORPUSCULAR VOLUME 89.8 fL (79-99); MONOCYTES % (AUTO) 3.1 % (3.0-13.0); NEUTROPHILS % (AUTO) 84.8 % (40.0-77.0); PLATELET COUNT (AUTO) 301 K/uL (130-400); WHITE BLOOD COUNT (AUTO) 8.9 K/uL (4.8-10.8)
[2020-01-01 06:42] LABS: ALANINE AMINOTRANSFERASE 73 U/L (12-78); ALBUMIN 2.5 g/dL (3.5-5.0); ASPARTATE AMINOTRANSFERASE 19 U/L (10-37); BILIRUBIN,TOTAL 0.6 mg/dL (0.2-1.0); CARBON DIOXIDE 28 mmol/L (21-32); CHLORIDE 98 mmol/L (101-111); CREATININE 0.7 mg/dL (0.5-1.5); GLOMERULAR FILTR. RATE CALC 91 mL/min (>60); GLUCOSE,RANDOM 239 mg/dL (70-105); LACTATE DEHYDROGENASE 230 U/L (81-234); POTASSIUM 4.6 mmol/L (3.5-5.1); SODIUM SERUM 134 mmol/L (136-145); TOTAL PROTEIN, SERUM 5.8 g/dL (6.0-8.3); UREA NITROGEN, BLOOD 22 mg/dL (7-18)
[2020-01-01 08:00] VITALS: BP 115/80
[2020-01-01] MEDS: ACETYLCYSTEINE 600 MG CAPSULE PO SCH ×2 (08:35→20:43)
[2020-01-01] MEDS: ENOXAPARIN SODIUM 40 MG/0.4 ML SYRINGE SQ SCH (08:35)
[2020-01-01] MEDS: FAMOTIDINE/PF 20 MG/2 ML VIAL IV SCH (08:35)
[2020-01-01 12:54] VITALS: BP 123/87
[2020-01-01] MEDS ORDERED: MAG HYDROX/AL HYDROX/SIMETH ES 30 ML SUSP UDCUP PO PRN (17:00)
[2020-01-01] MEDS: PANTOPRAZOLE SODIUM 40 MG TABLET.DR PO SCH (17:04)
--- NOTE | 2020-01-01 17:49 | NUR ---
Pt alert, showed no signs and symptoms of distress, nasal cannula placed on 4L and oxygen saturation was 94, pt brought a 25ft oxygen cord for her that was approved by [facility], pt is now able to walk since [facility] was out of stock, stated no pain, pt had heartburn, maalox and protonix was ordered and given, pt stated she felt better,
[2020-01-01 18:44] VITALS: BP 119/89
[2020-01-01 19:00] VITALS: BP 107/51
[2020-01-02] VITALS: BP 125/86
[2020-01-02] MEDS: ALBUTEROL SULFATE/IPRATROPIUM 103/18 MCG/PUFF 14.7 GM INHR IH SCH ×5 (00:11→23:34)
[2020-01-02 04:00] VITALS: BP 110/84
--- NOTE | 2020-01-02 04:35 | NUR ---
assessment Pt. is alert and oriented times 4. No complaints of any pain. patient is currently on 4 liters oxygen nasal canula. vitals stable will continue to monitor.
[2020-01-02] MEDS: METHYLPREDNISOLONE SOD SUCC 40MG/ML 1ML IVP SCH ×3 (06:02→20:06)
[2020-01-02] MEDS: INSULIN HUMULIN R 100 UNIT/ML 3ML SQ SCH ×4 (06:03→21:11)
[2020-01-02 06:42] LABS: BASOPHILS % (AUTO) 0.1 % (0.0-5.0); EOSINOPHILS % (AUTO) 0.1 % (0.0-8.0); LYMPHOCYTES % (AUTO) 10.3 % (21.0-51.0); MEAN CORPUSCULAR HEMOGLOBIN 29.7 pg (27.0-33.0); MEAN CORPUSCULAR HGB CONC 33.2 g/dL (32.0-36.0); MEAN CORPUSCULAR VOLUME 89.4 fL (79-99); NEUTROPHILS % (AUTO) 83.3 % (40.0-77.0); PLATELET COUNT (AUTO) 294 K/uL (130-400); RED BLOOD CELL COUNT(AUTO) 4.14 MIL/uL (4.00-5.50); WHITE BLOOD COUNT (AUTO) 11.2 K/uL (4.8-10.8)
[2020-01-02 07:06] LABS: ALANINE AMINOTRANSFERASE 61 U/L (12-78); ALBUMIN 2.7 g/dL (3.5-5.0); ASPARTATE AMINOTRANSFERASE 17 U/L (10-37); BILIRUBIN,TOTAL 0.8 mg/dL (0.2-1.0); CARBON DIOXIDE 32 mmol/L (21-32); CHLORIDE 100 mmol/L (101-111); CREATININE 0.8 mg/dL (0.5-1.5); GLOMERULAR FILTR. RATE CALC 78 mL/min (>60); GLUCOSE,RANDOM 221 mg/dL (70-105); LACTATE DEHYDROGENASE 237 U/L (81-234); POTASSIUM 4.5 mmol/L (3.5-5.1); SODIUM SERUM 135 mmol/L (136-145); TOTAL PROTEIN, SERUM 5.9 g/dL (6.0-8.3); UREA NITROGEN, BLOOD 23 mg/dL (7-18)
[2020-01-02] MEDS: ENOXAPARIN SODIUM 40 MG/0.4 ML SYRINGE SQ SCH (08:24)
[2020-01-02] MEDS: ACETYLCYSTEINE 600 MG CAPSULE PO SCH ×2 (08:25→20:06)
[2020-01-02] MEDS: PANTOPRAZOLE SODIUM 40 MG TABLET.DR PO SCH (08:25)
[2020-01-02 10:09] VITALS: BP 124/75
[2020-01-02 12:00] VITALS: BP 116/88
--- NOTE | 2020-01-02 18:44 | NUR ---
Pt alert, showed no signs and symptoms of distress, on 2L NC, will continue to monitor
[2020-01-02 19:24] VITALS: BP 121/81
[2020-01-02 19:46] VITALS: BP 117/79
[2020-01-03] VITALS (7 sets, daily range): BP systolic 98–138; BP diastolic 57–95
--- NOTE | 2020-01-03 04:37 | NUR ---
assessment patent is alert and oriented times 4. No complaints of any pain. Patient is currently one 1 liter of oygen. vitals are stable will continue to monitor
[2020-01-03] MEDS: ALBUTEROL SULFATE/IPRATROPIUM 103/18 MCG/PUFF 14.7 GM INHR IH SCH ×4 (05:53→23:47)
[2020-01-03] MEDS: METHYLPREDNISOLONE SOD SUCC 40MG/ML 1ML IVP SCH ×3 (06:10→19:35)
[2020-01-03] MEDS: INSULIN HUMULIN R 100 UNIT/ML 3ML SQ SCH ×4 (06:12→20:16)
[2020-01-03] MEDS: PANTOPRAZOLE SODIUM 40 MG TABLET.DR PO SCH (08:27)
[2020-01-03] MEDS: ENOXAPARIN SODIUM 40 MG/0.4 ML SYRINGE SQ SCH (08:27)
[2020-01-03] MEDS: ACETYLCYSTEINE 600 MG CAPSULE PO SCH ×2 (12:28→19:35)
[2020-01-03] MEDS: MONTELUKAST SODIUM 10 MG TAB PO SCH (18:10)
[2020-01-04 03:33] VITALS: BP 118/77
[2020-01-04] MEDS: ALBUTEROL SULFATE/IPRATROPIUM 103/18 MCG/PUFF 14.7 GM INHR IH SCH ×4 (05:01→23:51)
[2020-01-04 05:36] LABS: BASOPHILS % (AUTO) 0.2 % (0.0-5.0); EOSINOPHILS % (AUTO) 0.1 % (0.0-8.0); HEMATOCRIT 37.1 % (36-48); LYMPHOCYTES % (AUTO) 12.3 % (21.0-51.0); MEAN CORPUSCULAR HGB CONC 33.7 g/dL (32.0-36.0); MEAN CORPUSCULAR VOLUME 89.2 fL (79-99); MONOCYTES % (AUTO) 4.2 % (3.0-13.0); NEUTROPHILS % (AUTO) 79.8 % (40.0-77.0); PLATELET COUNT (AUTO) 273 K/uL (130-400); RED BLOOD CELL COUNT(AUTO) 4.16 MIL/uL (4.00-5.50); RED CELL DISTRIBUTION WIDTH 12.2 % (11.0-15.5); WHITE BLOOD COUNT (AUTO) 13.5 K/uL (4.8-10.8)
[2020-01-04] MEDS: METHYLPREDNISOLONE SOD SUCC 40MG/ML 1ML IVP SCH ×3 (05:41→19:57)
[2020-01-04] MEDS: INSULIN HUMULIN R 100 UNIT/ML 3ML SQ SCH ×4 (05:42→20:36)
[2020-01-04 06:03] LABS: ALANINE AMINOTRANSFERASE 69 U/L (12-78); ALBUMIN 2.6 g/dL (3.5-5.0); ASPARTATE AMINOTRANSFERASE 18 U/L (10-37); BILIRUBIN,TOTAL 0.5 mg/dL (0.2-1.0); CARBON DIOXIDE 28 mmol/L (21-32); CHLORIDE 100 mmol/L (101-111); CREATININE 0.7 mg/dL (0.5-1.5); GLOMERULAR FILTR. RATE CALC 91 mL/min (>60); GLUCOSE,RANDOM 206 mg/dL (70-105); LACTATE DEHYDROGENASE 230 U/L (81-234); POTASSIUM 4.3 mmol/L (3.5-5.1); SODIUM SERUM 135 mmol/L (136-145); TOTAL PROTEIN, SERUM 5.8 g/dL (6.0-8.3); UREA NITROGEN, BLOOD 25 mg/dL (7-18)
[2020-01-04 08:37] VITALS: BP 114/80
[2020-01-04] MEDS: PANTOPRAZOLE SODIUM 40 MG TABLET.DR PO SCH (09:53)
[2020-01-04] MEDS: MONTELUKAST SODIUM 10 MG TAB PO SCH (09:53)
[2020-01-04] MEDS: LOSARTAN 50 MG TABLET PO SCH (09:53)
[2020-01-04] MEDS: ACETYLCYSTEINE 600 MG CAPSULE PO SCH ×2 (09:53→19:57)
[2020-01-04] MEDS: ENOXAPARIN SODIUM 40 MG/0.4 ML SYRINGE SQ SCH (09:54)
[2020-01-04 13:10] VITALS: BP 123/81
[2020-01-04 18:01] VITALS: BP 113/73
[2020-01-04 20:00] VITALS: BP 117/57
[2020-01-04 23:44] VITALS: BP 126/84
[2020-01-05 03:59] VITALS: BP 117/88
[2020-01-05] MEDS: ALBUTEROL SULFATE/IPRATROPIUM 103/18 MCG/PUFF 14.7 GM INHR IH SCH ×3 (04:30→17:05)
[2020-01-05] MEDS: METHYLPREDNISOLONE SOD SUCC 40MG/ML 1ML IVP SCH ×3 (05:40→19:54)
[2020-01-05] MEDS: INSULIN HUMULIN R 100 UNIT/ML 3ML SQ SCH ×4 (05:41→20:59)
--- NOTE | 2020-01-05 06:07 | NUR ---
ASSESSMENT PATIENT IS ALERT AND ORIENTED TIMES 4. nO COMPLAINTS OF ANY PAIN. PATIENT IS ROOM AIR AT THIS TIME SATING 93%. wILL CONTINUE TO MONITOR.
[2020-01-05 06:30] LABS: BASOPHILS % (AUTO) 0.3 % (0.0-5.0); EOSINOPHILS % (AUTO) 0.1 % (0.0-8.0); HEMATOCRIT 38.6 % (36-48); LYMPHOCYTES % (AUTO) 12.8 % (21.0-51.0); MEAN CORPUSCULAR HEMOGLOBIN 30.5 pg (27.0-33.0); MEAN CORPUSCULAR HGB CONC 33.9 g/dL (32.0-36.0); MEAN CORPUSCULAR VOLUME 89.8 fL (79-99); MONOCYTES % (AUTO) 3.6 % (3.0-13.0); NEUTROPHILS % (AUTO) 79.2 % (40.0-77.0); PLATELET COUNT (AUTO) 252 K/uL (130-400); RED CELL DISTRIBUTION WIDTH 12.4 % (11.0-15.5); WHITE BLOOD COUNT (AUTO) 15.5 K/uL (4.8-10.8)
[2020-01-05 07:06] LABS: ALANINE AMINOTRANSFERASE 71 U/L (12-78); ALBUMIN 2.8 g/dL (3.5-5.0); ASPARTATE AMINOTRANSFERASE 17 U/L (10-37); BILIRUBIN,TOTAL 0.7 mg/dL (0.2-1.0); CARBON DIOXIDE 29 mmol/L (21-32); CHLORIDE 101 mmol/L (101-111); CREATININE 0.8 mg/dL (0.5-1.5); GLOMERULAR FILTR. RATE CALC 78 mL/min (>60); GLUCOSE,RANDOM 203 mg/dL (70-105); LACTATE DEHYDROGENASE 222 U/L (81-234); POTASSIUM 4.8 mmol/L (3.5-5.1); SODIUM SERUM 136 mmol/L (136-145); UREA NITROGEN, BLOOD 21 mg/dL (7-18)
[2020-01-05 08:45] VITALS: BP 116/87
[2020-01-05] MEDS: LOSARTAN 50 MG TABLET PO SCH (09:38)
[2020-01-05] MEDS: ENOXAPARIN SODIUM 40 MG/0.4 ML SYRINGE SQ SCH (09:38)
[2020-01-05] MEDS: PANTOPRAZOLE SODIUM 40 MG TABLET.DR PO SCH (09:38)
[2020-01-05] MEDS: MONTELUKAST SODIUM 10 MG TAB PO SCH (09:38)
[2020-01-05] MEDS: ACETYLCYSTEINE 600 MG CAPSULE PO SCH ×2 (09:38→19:25)
[2020-01-05 11:00] VITALS: BP 115/88
[2020-01-05 11:45] LABS: CRP QUANTITATIVE < 2.00 mg/L (0.00-9.0)
[2020-01-05 16:00] VITALS: BP 109/70
--- NOTE | 2020-01-05 17:54 | NUR ---
Pt alert, showed no signs and symptoms of distress, pt was on room air sat of 88-92, stated possible discharge tomorrow, will continue to monitor
[2020-01-05 20:12] VITALS: BP 101/78
[2020-01-06 00:12] VITALS: BP 107/81
[2020-01-06] MEDS: ALBUTEROL SULFATE/IPRATROPIUM 103/18 MCG/PUFF 14.7 GM INHR IH SCH ×3 (00:35→11:26)
[2020-01-06 04:12] VITALS: BP 114/81
[2020-01-06 05:01] LABS: BASOPHILS % (AUTO) 0.4 % (0.0-5.0); EOSINOPHILS % (AUTO) 0.1 % (0.0-8.0); HEMATOCRIT 39.8 % (36-48); LYMPHOCYTES % (AUTO) 9.9 % (21.0-51.0); MEAN CORPUSCULAR HEMOGLOBIN 30.3 pg (27.0-33.0); MEAN CORPUSCULAR HGB CONC 33.9 g/dL (32.0-36.0); MEAN CORPUSCULAR VOLUME 89.4 fL (79-99); MONOCYTES % (AUTO) 3.4 % (3.0-13.0); NEUTROPHILS % (AUTO) 81.8 % (40.0-77.0); PLATELET COUNT (AUTO) 263 K/uL (130-400); RED BLOOD CELL COUNT(AUTO) 4.45 MIL/uL (4.00-5.50); RED CELL DISTRIBUTION WIDTH 12.5 % (11.0-15.5); WHITE BLOOD COUNT (AUTO) 16.3 K/uL (4.8-10.8)
[2020-01-06 05:34] LABS: ALANINE AMINOTRANSFERASE 76 U/L (12-78); ALBUMIN 2.9 g/dL (3.5-5.0); ASPARTATE AMINOTRANSFERASE 18 U/L (10-37); BILIRUBIN,TOTAL 0.8 mg/dL (0.2-1.0); CARBON DIOXIDE 27 mmol/L (21-32); CHLORIDE 99 mmol/L (101-111); CREATININE 0.9 mg/dL (0.5-1.5); GLOMERULAR FILTR. RATE CALC 68 mL/min (>60); GLUCOSE,RANDOM 234 mg/dL (70-105); LACTATE DEHYDROGENASE 248 U/L (81-234); POTASSIUM 4.6 mmol/L (3.5-5.1); SODIUM SERUM 135 mmol/L (136-145); TOTAL PROTEIN, SERUM 6.2 g/dL (6.0-8.3); UREA NITROGEN, BLOOD 23 mg/dL (7-18)
[2020-01-06 05:35] LABS: PLATELET MORPHOLOGY PLT CLUMPS PRESENT
[2020-01-06] MEDS: METHYLPREDNISOLONE SOD SUCC 40MG/ML 1ML IVP SCH ×2 (06:01→17:30)
[2020-01-06] MEDS: INSULIN HUMULIN R 100 UNIT/ML 3ML SQ SCH ×3 (06:02→17:33)
--- NOTE | 2020-01-06 06:42 | NUR ---
assessment pt. is alert and riented times 4 no complaints of any pain. pt. is currently on room air. vitals stable blod sugar 203 coverage given. will continue to monitor.
[2020-01-06 08:00] VITALS: BP 113/86
[2020-01-06] MEDS: ENOXAPARIN SODIUM 40 MG/0.4 ML SYRINGE SQ SCH (09:18)
[2020-01-06] MEDS: MONTELUKAST SODIUM 10 MG TAB PO SCH (09:18)
[2020-01-06] MEDS: LOSARTAN 50 MG TABLET PO SCH (09:18)
[2020-01-06] MEDS: PANTOPRAZOLE SODIUM 40 MG TABLET.DR PO SCH (09:18)
[2020-01-06 11:00] VITALS: BP 151/75
[2020-01-06] MEDS: ACETYLCYSTEINE 600 MG CAPSULE PO SCH (11:00)
--- NOTE | 2020-01-06 12:45 | NUR ---
FAMILY NOTIFICATION AND UPDATE UNABLE TO SPEAK TO CALVIN COBIAN-NO ANSWER
[2020-01-06 15:17] LABS: HEMOGLOBIN A1C 7.7 % (4.0-6.0)
--- NOTE | 2020-01-06 15:51 | NUR ---
Family notification Addendum for 01/05/2020; Spoke to Johnathon Ryder and gave him an update regarding patient's condition. All questions were answered and concerns addressed. Mr. Ryder stated that pt has told him she has received wonderful care from all the staff and him and pt are very appreciative for all that has been done and he was very grateful for the call.
[2020-01-06 16:00] VITALS: BP 113/75
--- NOTE | 2020-01-06 16:00 | NUR ---
CM NOTE/OXYGEN [facility] PATIENT AMBULATED WITH RESPIRATORY THERAPIST, O2 SATURATION ON ROOM AIR AND AMBULATION IS 84%, MEETING CRITERIA FOR HOME OXYGEN. O2 CONCENTRATOR BROUGHT TO NURSES STATION. TOMASZ, PRIMARY NURSE, MADE AWARE AND WILL GIVE TO PATIENT ALONG WITH SIGNED FORM FOR LENDING. PATIENT TO DC HOME WITH [facility] OXYGEN CONCENTRATOR AND TO RETURN WHEN NOT IN USE.
--- NOTE | 2020-01-06 17:54 | NUR ---
Pt discharge with an oxygen concentrator, pt will have her own portable oxygen going home, pt on room air sat at 96%, pt educated on oxygen therapy, discharge instructions was given and educated,
== END 2020-01-06 18:47 | disposition home or self-care (01) | DRG 177 ==
LOC: EDH 23:57 → EDHIP 12-17 03:52 → 2BH 12-17 21:45 → 4BH 12-25 10:09
PROVIDERS: ADMIT Hospitalist; ATTEND Hospitalist
PROC: 30233K1 Transfusion of Nonautologous Frozen Plasma into Peripheral Vein, Percutaneous Approach (ICD-10-PCS; principal; 2019-12-17)
DX: U07.1 COVID-19 (principal); J12.89 Other viral pneumonia; J96.01 Acute respiratory failure with hypoxia; E11.9 Type 2 diabetes mellitus without complications; I10 Essential (primary) hypertension; J45.909 Unspecified asthma, uncomplicated; Z66 Do not resuscitate; Z91.041 Radiographic dye allergy status
CPT/HCPCS: 36415; 36430; 36600; 71045; 80048; 80053; 81001; 82550; 82728; 82803; 82948; 83036; 83605; 83615; 83874; 84145; 84484; 85025; 85378; 85610; 85730; 86140; 86850; 86900; 86901; 86927; 87040; 87088; 87486; 87581; 87633; 87635; 87798; 87804; 93005; 94760; 99291; G0378; J0456; J0696; J1100; J1650; J1815; J2405; J2920; J2930; J3490; J7050; P9017; Q9967